=== PATIENT | female | born 1945 | race Caucasian/White ===

== ENCOUNTER 2021-12-13 11:13 | Inpatient (IN) | payer BC ==
[~2021-12-13] VITALS: Ht 167.6 cm; Wt 54.4 kg
[2021-12-13 11:13] VITALS: BP_SYST 141
--- NOTE | 2021-12-13 11:25 | NUR ---
RECEIVED PT FROM KUNAL SMALLS. PT WAS SENT HER BY HER PCP DUE TO LOW HGB LEVEL. PT IS AAOX4. PERRL, RESP E/U. ON R/A. DENIES N/V/D/C. SKIN PALE, WARM, INTACT. CAP REFILL <3 SECS. NO EDEMA. DENIES PAIN.
--- NOTE | 2021-12-13 11:32 | NUR ---
ER at bedside examining patient.
--- NOTE | 2021-12-13 11:40 | NUR ---
# 20 gauge angiocath placed to LAC. Use of asceptic technique. Opsite placed over site. Blood return noted. Blood for lab drawn from site. Flushed with 10 cc of normal saline. No evidence of infiltration noted. Patient tolerated well.
[2021-12-13 11:55] LABS: BASOPHILS # (AUTO) 0.2 K/uL (0.0-0.2); BASOPHILS % (AUTO) 1.9 % (0.0-2.0); EOSINOPHILS # (AUTO) 0.3 K/uL (0.0-0.4); EOSINOPHILS % (AUTO) 2.6 % (0.0-4.0); LYMPHOCYTES # (AUTO) 0.9 K/uL (1.0-5.5); LYMPHOCYTES % (AUTO) 8.5 % (20.5-51.5); MEAN CORPUSCULAR HEMOGLOBIN 23 pg (27-31); MEAN CORPUSCULAR HGB CONC 33 % (32-36); MEAN CORPUSCULAR VOLUME 70 fL (79.0-98.0); MONOCYTES # (AUTO) 0.6 K/uL (0.0-1.0); NEUTROPHILS # (AUTO) 8.2 K/uL (1.8-7.7); PLATELET COUNT (AUTO) 437 K/uL (130-430); RED BLOOD CELL COUNT(AUTO) 2.13 MIL/uL (4.2-6.2); RED CELL DISTRIBUTION WIDTH 23.5 % (9.0-15.0); WHITE BLOOD COUNT (AUTO) 10.2 K/uL (4.8-10.8)
[2021-12-13 11:58] LABS: HEMATOCRIT 14.9 % (36-48); HEMOGLOBIN 4.9 g/dL (12.0-16.0)
--- NOTE | 2021-12-13 12:02 | NUR ---
BLOOD CONSENT AND COVID SAMPLE OBTAINED.
[2021-12-13 12:07] LABS: ANION GAP 6 (5-15); CALCIUM 8.1 mg/dL (8.4-11.0); CHLORIDE 102 mmol/L (98-107); CREATININE 0.82 mg/dL (0.55-1.30); GLUCOSE 105 mg/dL (70-99); UREA NITROGEN, BLOOD 17 mg/dL (8-21)
[2021-12-13 12:11] LABS: ALANINE AMINOTRANSFERASE 13 U/L (12-78); ALBUMIN 2.6 g/dL (3.4-4.8); AMYLASE 54 U/L (0-100); ASPARTATE AMINOTRANSFERASE 15 U/L (10-37); LIPASE 62 U/L (73-393); TOTAL BILIRUBIN 0.7 mg/dL (0.0-1.0)
[2021-12-13 12:13] LABS: PROTHROMBIN TIME 10.4 SECS (9.5-12.5)
--- NOTE | 2021-12-13 13:15 | NUR ---
FIRST UNIT PRBC OF 3 UNITS INITIATED AT THIS TIME. PT EDUCATED ON S/S OF TRANSFUISION REACTION AND VERBALIZED UNDERSTANDING.
--- NOTE | 2021-12-13 14:30 | NUR ---
Admit bed requested Patient will be admitted to care of . Admitted to TELEMETRY unit. Diagnosis SYMPTOMATIC ANEMIA Inpatient (Yes or No) YES Observation (Yes or No) NO Orientation concerns or request close to nursing station (Yes or No) NO Covid Status NEGATIVE On vent or bipap NO Isolation requirements NO Needs a sitter YES From Home (Yes or if No enter name of facility) YES Requires Dialysis (Yes or No) NO Med Rec Completed (Yes of No)NOT AVAILABLE.
--- NOTE | 2021-12-13 15:55 | NUR ---
BLOOD TRANSFUSION ONE UNIT PRBC COMPLETED. PT TRANSFERRED TO TELEMETRY R00M 111B. PT ENDORSED TO KUNAL HEDRICK. FLORIDALMA MADE AWARE PT HAS 2 MORE UNITS PRBCS DUE AND BLOOD BANK TECH STATED BOTH UNITS ARE READY. Patient will be admitted to care of KUNAL HEDRICK. Admitted to TELEMETRY unit. Will go to room 111B. Belongings list completed. Complete and up to date summary report printed. SBAR report to be given at bedside with opportunity for questions.
--- NOTE | 2021-12-13 17:17 | NUR ---
ADMITTED PATIENT TO ROOM 111b,A/OX4,VSS,AMBULATORY TO BATHROOM WITH STAND BY ASSIST,STARTED SECOND UNIT PRBC ,CONTINUE TO MONITOR PT PER TRANSFUSION PROTOCOL
[2021-12-13] MEDS ORDERED: PANTOPRAZOLE SODIUM 40 MG/VIAL (PROTONIX) IVP ONE (17:30)
[2021-12-13 17:41] VITALS: BP_SYST 127
[2021-12-13] MEDS ORDERED: SIMV-343 PO (17:58)
[2021-12-13] MEDS ORDERED: LEVO100C4 (18:02)
[2021-12-13] MEDS ORDERED: IRON28TA4 PO (18:02)
[2021-12-13] MEDS ORDERED: OMEG-158 PO (18:24)
--- NOTE | 2021-12-13 18:30 | NUR ---
SECOND UNIT BLOOD ONGOING WELL.NO BLOOD TRANSFUSION REACTIONS OBSERVED PT EATING WELL FOR DINNER,HOURLY ROUNDS MADE,SAFETY MAINTAINED.
[2021-12-13 19:35] VITALS: BP_SYST 130
--- NOTE | 2021-12-13 19:35 | NUR ---
INITIAL NOTE AT INITIAL ASSESSMENT, PATIENT IS RESTING IN BED, STABLE, NO SIGNS OF RESPIRATORY DISTRESS. IS AT BEDSIDE. PATIENT VERBALIZES NO PAIN. PLAN OF CARE FOR THE EVENING IS COMMUNICATED WITH THE PATIENT, AND HER . PATIENT IS TAUGHT CALL LIGHT BUTTON, AND SHE DEMONSTRATES USAGE TEACH BACK CORRECTLY. CALL LIGHT PLACED WITHIN REACH. BED IS LOCKED, ALARMED, AND AT THE LOWEST LEVEL. FALL, AND SAFETY PRECAUTIONS WILL BE TAKEN THROUGH THE SHIFT.
--- NOTE | 2021-12-13 19:47 | NUR ---
2nd unit blood transfusion complete KUNAL Paul and myself (KUNAL Ybarra) at bedside with patient. Blood transfusion complete. VSS, afebrile and denies any pain or symptoms of reaction. Patient ambulated to restroom, returned to bed. No distress, family is visiting at bedside, call light w/in reach.
[2021-12-13] MEDS: D5/0.45 NS 1,000 ML IV SCH (20:20)
--- NOTE | 2021-12-13 21:55 | NUR ---
BT INITIATION/ UNIT #3 OF 3 Consent signed per PATIENT agreeing to administration of blood. Blood has been type and crossmatched. Blood sent from blood bank. Information on unit of blood checked against patient wristband at bedside by two nurses. All information matches. Patient or responsible green party informed of potential complications associated with blood transfusion. Informed of possible transfusion reaction symptoms. Aware of need to notify nurse at once of itching, shortness of breath, flushing, feeling of impending doom, or other symptoms not previously present. Vital signs taken within 5 minutes prior to initiation of transfusion. RN will remain with patient for first 15 minutes of transfusion at which time vital signs will be re-assessed.
--- NOTE | 2021-12-13 23:10 | NUR ---
PATIENT AMBULATED TO RESTROOM PATIENT WAS ABLE TO AMBULATE TO THE RESTROOM FOR A VOID AT THIS TIME WITH ONLY STAND-BY ASSIST. SHE TOLERATED TRIP WELL.
[2021-12-14] VITALS: BP_SYST 130
--- NOTE | 2021-12-14 00:25 | NUR ---
BLOOD TRANSFUSION 3 OF 3 COMPLETED PATIENT TOLERATED BLOOD TRANSFUSION WELL, NO ADVERSE REACTIONS NOTED. SHE VERBALIZED SHE FEELS "BETTER" AND "MORE ENERGIZED". SHE IS CONNECTED BACK ONTO HER IVF PER ORDERS.
[2021-12-14 03:49] LABS: HEMATOCRIT 24.5 % (36-48); HEMOGLOBIN 8.3 g/dL (12.0-16.0)
[2021-12-14 03:55] LABS: TOTAL IRON BIND. CAPACITY 302 ug/dL (250-450)
--- NOTE | 2021-12-14 06:59 | NUR ---
CLOSING NOTE PATIENT SHE FEELS MUCH BETTER AND MORE ENERGETIC THIS MORNING, SHE HAS BEEN AMBULATING TO THE RESTROOM WITHOUT ASSISTANCE NEEDED DURING THE NIGHT. SHE VERBALIZES NO PAIN. AT THIS TIME, SHE IS RESTING IN BED, STABLE, NO SIGNS OF RESPIRATORY DISTRESS. CALL LIGHT PLACED WITHIN REACH. BED IS LOCKED, ALARMED, AND AT THE LOWEST LEVEL. WILL CONTINUE TO MONITOR UNTIL REPORT IS GIVEN AT BEDSIDE TO AM NURSE.
[2021-12-14 08:00] VITALS: BP_SYST 135
[2021-12-14] MEDS: PANTOPRAZOLE SODIUM 40 MG/VIAL (PROTONIX) IVP SCH (09:08)
[2021-12-14] MEDS ORDERED: POLYETHYLENE GLYCOL 3350, 17 GM/ POWD.PACK PO SCH (10:00)
[2021-12-14] MEDS ORDERED: POLYETHYLENE GLYCOL 3350, 17 GM/ POWD.PACK PO ONE ×5 (10:30→22:00)
--- NOTE | 2021-12-14 13:53 | NUR ---
CONSULTATION PAGED/CALLED Reason for Consultation: [] CHRONIC ANEMIA Person Who was Notified: [] AGATA Consulting Physician: [] DR DEE Chief Medical Officer Specialty: [] ONCO/DOUGLAS Ordering Physician: [] DR MATTHEWS
[2021-12-14] MEDS ORDERED: BISACODYL 5 MG TABLET.DR (DULCOLAX) PO ONE (17:00)
[2021-12-14 19:35] VITALS: BP_SYST 118
--- NOTE | 2021-12-14 19:35 | NUR ---
INITIAL NOTE AT INITIAL ASSESSMENT, PATIENT IS RESTING IN BED, STABLE, NO SIGNS OF RESPIRATORY DISTRESS. PATIENT VERBALIZES NO PAIN. PLAN OF CARE FOR THE EVENING IS COMMUNICATED WITH THE PATIENT. PATIENT IS TAUGHT CALL LIGHT BUTTON, AND SHE DEMONSTRATES USAGE TEACH BACK CORRECTLY. PATIENT UNDERSTANDS THE PLAN FOR COLONOSCOPY AND EGD IN AM; SHE ALSO UNDERSTANDS THE PREPARATION SHE WILL HAVE TO GO THROUGH TONIGHT TO PREPARE FOR AM PROCEDURE. CALL LIGHT PLACED WITHIN REACH. BED IS LOCKED, ALARMED, AND AT THE LOWEST LEVEL. FALL, AND SAFETY PRECAUTIONS WILL BE TAKEN THROUGH THE SHIFT. Addendum: 12/15/21 at 0254 by Osorio Coronel RN RN PATIENT VERBALIZES SHE KNOWS SHE IS NPO AT THIS TIME PER MD ORDERS FOR AM PROCEDURE.
[2021-12-14] MEDS: D5/0.45 NS 1,000 ML IV SCH (21:12)
--- NOTE | 2021-12-14 23:00 | NUR ---
PATIENT FINISHES 2 OF 2 MIRALAX BOTTLES PATIENT HAS JUST FINISHED HER SECOND LITER OF MIRALAX. PATIENT TOLERATED WELL. CURRENTLY HER BOWEL MOVEMENTS AT THIS TIME ARE YELLOW WITH SOME SEDIMENTS. SHE IS STILL AMBULATING SAFELY WITHOUT ASSISTANCE NEEDED.
[2021-12-15 00:52] VITALS: BP_SYST 141
--- NOTE | 2021-12-15 04:20 | NUR ---
TAP WATER ENEMA TAP WATER ENEMA COMPLETED AT THIS TIME, PATIENT'S OUTPUT IS CLEARED, NO SEDIMENTS NOTED. PATIENT TOLERATED WELL.
--- NOTE | 2021-12-15 06:58 | NUR ---
CLOSING NOTE STOOLS ARE CLEARED, TAP WATER ENEMA ALREADY COMPLETED. PATIENT HAS BEEN NPO. PATIENT VERBALIZED NO MORE STOMACH PAINS OR CRAMPING THIS MORNING, SHE HAS BEEN AMBULATING TO THE RESTROOM WITHOUT ASSISTANCE NEEDED DURING THE NIGHT. SHE VERBALIZES NO PAIN. AT THIS TIME, SHE IS RESTING IN BED, STABLE, NO SIGNS OF RESPIRATORY DISTRESS. CALL LIGHT PLACED WITHIN REACH. BED IS LOCKED, ALARMED, AND AT THE LOWEST LEVEL. WILL CONTINUE TO MONITOR UNTIL REPORT IS GIVEN AT BEDSIDE TO AM NURSE.
[2021-12-15 08:00] VITALS: BP_SYST 143
--- NOTE | 2021-12-15 08:00 | NUR ---
AM ASSESSMENT PT UP IN BED, CHECKING HER PHONE, AWARE OF HER PROCEDURE FOR TODAY, NPO, EGD AND COLONOSCOPY.
[2021-12-15 08:12] LABS: TOTAL IRON BIND. CAPACITY 294 ug/dL (250-450)
[2021-12-15] MEDS: PANTOPRAZOLE SODIUM 40 MG/VIAL (PROTONIX) IVP SCH (09:39)
[2021-12-15] MEDS ORDERED: SIMETHICONE 40 MG/0.6 ML ML ONE (10:34)
[2021-12-15 11:40] VITALS: BP_SYST 133
[2021-12-15] MEDS ORDERED: PRO40 PO (11:54)
--- NOTE | 2021-12-15 12:05 | NUR ---
TO GI LAB TRANSPORTED VIA WHEELCHAIR TO THE DEPT.
[2021-12-15] MEDS: MIDAZOLAM HCL 5 MG/5 ML VIAL ONE ×4 (12:33→12:56)
[2021-12-15] MEDS: MEPERIDINE 100 MG INJ. 100 MG/ML VIAL ONE ×2 (12:33→12:49)
--- NOTE | 2021-12-15 13:25 | NUR ---
TO [facility] BROUGHT PT BACK TO ROOM 111-B.
--- NOTE | 2021-12-15 13:39 | NUR ---
CONSULTATION PAGED REASON FOR CONSULTATION:CA COLON WAS CONSULT CALLED?Y PERSON WHO WAS NOTIFIED:MADY CONSULTING PHYSICIAN:[employer] AIR CONDITIONING SERVICE TECHNICIAN SPECIALTY:ONCOLOGY/HEMATOLOGY AIR CONDITIONING SERVICE TECHNICIAN PHONE NUMBER:[phone] REQUESTING PHYSICIAN:PIERO DUNN
--- NOTE | 2021-12-15 13:51 | NUR ---
CONSULTATION PAGED REASON FOR CONSULTATION:CA COLON WAS CONSULT CALLED?Y PERSON WHO WAS NOTIFIED:CIPRIANO CONSULTING PHYSICIAN:FABIOLA GIMENEZ TABLEAU ARCHITECT SPECIALTY:SURGEON TABLEAU ARCHITECT PHONE NUMBER:[phone] REQUESTING PHYSICIAN:PIERO DUNN
[2021-12-15 15:15] VITALS: BP_SYST 111
--- NOTE | 2021-12-15 16:20 | NUR ---
CONSENT APPROACHED PT WHILE SHE WAS SPEAKING TO HER . CONSENT FOR USE OF IV CONTRAST GIVEN.
[2021-12-15] MEDS ORDERED: iohexoL 350 mgI/mL, 100 ML INFUS..BTL IV ONE (17:15)
[2021-12-15 19:45] VITALS: BP_SYST 125
[2021-12-16 01:21] VITALS: BP_SYST 108
[2021-12-16] MEDS: D5/0.45 NS 1,000 ML IV SCH ×2 (06:20→18:15)
--- NOTE | 2021-12-16 06:45 | NUR ---
CLOSING NOTE NO CHANGES. PATIENT STATED SHE HAD NO PAINS OR DISCOMFORT, SHE HAS BEEN AMBULATING TO THE RESTROOM WITHOUT ASSISTANCE NEEDED DURING THE NIGHT. AT THIS TIME, SHE IS RESTING IN BED, STABLE, NO SIGNS OF RESPIRATORY DISTRESS. CALL LIGHT PLACED WITHIN REACH. BED IS LOCKED, ALARMED, AND AT THE LOWEST LEVEL. WILL CONTINUE TO MONITOR UNTIL REPORT IS GIVEN AT BEDSIDE TO AM NURSE.
[2021-12-16 07:09] LABS: ANION GAP 7 (5-15); CALCIUM 8.3 mg/dL (8.4-11.0); CHLORIDE 105 mmol/L (98-107); GLUCOSE 97 mg/dL (70-99); UREA NITROGEN, BLOOD 8 mg/dL (8-21)
[2021-12-16 08:00] VITALS: BP_SYST 141
--- NOTE | 2021-12-16 08:05 | NUR ---
Initial note Received patient awake, alert/oriented x4, verbalizes needs and concern. Respiration even and unlabored, lungs clear. Vital signs normal, SR on campus monitor. No c/o SOB or pain, no signs distress. IV fluids infusing to right hand, no sign of infiltration. All safety measure are secured, bed in low position, call light w/in reached, continue to monitor.
[2021-12-16 08:18] LABS: BASOPHILS # (AUTO) 0.1 K/uL (0.0-0.2); BASOPHILS % (AUTO) 0.8 % (0.0-2.0); EOSINOPHILS # (AUTO) 0.4 K/uL (0.0-0.4); EOSINOPHILS % (AUTO) 3.8 % (0.0-4.0); HEMOGLOBIN 8.1 g/dL (12.0-16.0); LYMPHOCYTES # (AUTO) 0.8 K/uL (1.0-5.5); LYMPHOCYTES % (AUTO) 7.5 % (20.5-51.5); MEAN CORPUSCULAR HEMOGLOBIN 27 pg (27-31); MEAN CORPUSCULAR HGB CONC 34 % (32-36); MEAN CORPUSCULAR VOLUME 79 fL (79.0-98.0); MONOCYTES # (AUTO) 0.7 K/uL (0.0-1.0); MONOCYTES % (AUTO) 6.6 % (1.7-9.3); NEUTROPHILS # (AUTO) 8.3 K/uL (1.8-7.7); NEUTROPHILS % (AUTO) 81.3 % (40.0-70.0); PLATELET COUNT (AUTO) 331 K/uL (130-430); RED BLOOD CELL COUNT(AUTO) 3.04 MIL/uL (4.2-6.2); RED CELL DISTRIBUTION WIDTH 25.9 % (9.0-15.0); WHITE BLOOD COUNT (AUTO) 10.2 K/uL (4.8-10.8)
[2021-12-16] MEDS: PANTOPRAZOLE SODIUM 40 MG/VIAL (PROTONIX) IVP SCH (08:26)
[2021-12-16] MEDS ORDERED: POTASSIUM CHLORIDE 40 MEQ in NS 250 ML IV ONE (09:15)
[2021-12-16] MEDS ORDERED: OMEGA-3/DHA/EPA/FISH OIL 1 GM CAPSULE PO ONE (09:45)
[2021-12-16] MEDS ORDERED: LEVOTHYROXINE SODIUM 0.1 MG TABLET PO ONE (09:45)
--- NOTE | 2021-12-16 09:51 | NUR ---
HIGH ALERT NOTE: Called Dr. Reilly harvest contractor for Dr. Grant back at [phone] identified within the medical roster to verify physician authenticity.
--- NOTE | 2021-12-16 10:00 | NUR ---
Rounding Patient stable , no c/o pain or distress, all safety secured, continue to monitor
[2021-12-16 12:00] VITALS: BP_SYST 135
--- NOTE | 2021-12-16 12:00 | NUR ---
SEEN BY DR BYRON MATTHEWS CAME TO SEE PATIENT.
--- NOTE | 2021-12-16 13:00 | NUR ---
DR HOFFMAN CAME TO SEE PATIENT DR. HOFFMAN CAME TO SEE PATIENT PLANNING TO DO SURGERY ON SATURDAY, PATIENT TO BE KEPT ON CLEAR LIQUID TILL BEFORE SURGERY
--- NOTE | 2021-12-16 16:00 | NUR ---
Rounding No c/o pain or distress in stable condition,all safety secured, family at bedside continue to monitor
[2021-12-16 16:56] VITALS: BP_SYST 140
--- NOTE | 2021-12-16 18:18 | NUR ---
Closing note Patient stable, no c/o pain, dizziness or SOB, vital signs w/in normal limit, no change in condition, will endorse to oncoming nurse
--- NOTE | 2021-12-16 18:43 | NUR ---
IV SITE IV SITE GETTING TENDER, EXPLAINED THE IMPORTANCE OF RE INSERTING A NEW ONE BUT STILL REFUSED.
--- NOTE | 2021-12-16 18:55 | NUR ---
CARDIAC CLEARANCE TO BE SEEN BY DR Miquel ANGELO FOR CARDIAC CLEARANCE.
[2021-12-16] MEDS: SIMVASTATIN 20 MG TABLET PO SCH (20:24)
[2021-12-16 20:57] VITALS: BP_SYST 134
--- NOTE | 2021-12-17 00:24 | NUR ---
CONSULTATION PAGED/CALLED Reason for Consultation: CARDIAC CLEARANCE Person Who was Notified: DR Delia ANGELO VIA TEXT Consulting Physician: DR Delia ANGELO Cupola Worker Specialty: Ordering Physician: BYRON
[2021-12-17] MEDS: D5/0.45 NS 1,000 ML IV SCH ×3 (01:19→21:14)
--- NOTE | 2021-12-17 05:34 | NUR ---
rn notes patient remains on room air, no sob noted, VSS all shift. clear liquid diet, and tolerating. D5 1/2 NS running at 100 mL. Biopsy of colon mass done, pending results. K was replaced. Saturday surgery is the plan.
[2021-12-17] MEDS: LEVOTHYROXINE SODIUM 0.1 MG TABLET PO SCH (06:24)
[2021-12-17 08:00] VITALS: BP_SYST 135
[2021-12-17] MEDS ORDERED: OMEGA-3/DHA/EPA/FISH OIL 1 GM CAPSULE PO SCH (09:00)
[2021-12-17] MEDS: PANTOPRAZOLE SODIUM 40 MG/VIAL (PROTONIX) IVP SCH (10:45)
[2021-12-17 11:14] LABS: ANION GAP 7 (5-15); CALCIUM 8.2 mg/dL (8.4-11.0); CHLORIDE 105 mmol/L (98-107); GLUCOSE 113 mg/dL (70-99); UREA NITROGEN, BLOOD 5 mg/dL (8-21)
[2021-12-17] MEDS ORDERED: POTASSIUM CHLORIDE 40 MEQ, LIDOCAINE JECT 2% PF 100 MG 50 MG in NS 250 ML IV ONE (11:45)
[2021-12-17 12:00] VITALS: BP_SYST 136
--- NOTE | 2021-12-17 12:54 | NUR ---
Eliane from radiology called this typewriter assembly and parts inspector she states that she has spoken ith the staff of nuclear medicine and th ordered study will be completed at 10am tomorrow 12/18/21
[2021-12-17] MEDS: NEOMYCIN SULFATE 500 MG TABLET PO SCH ×2 (13:19→18:01)
[2021-12-17 16:00] VITALS: BP_SYST 134
[2021-12-17] MEDS ORDERED: POTASSIUM CHLORIDE 20 MEQ TAB.PRT.SR PO ONE (16:00)
[2021-12-17 17:14] LABS: BILIRUBIN,URINE NEGATIVE (NEGATIVE); CLARITY/URINE CLEAR (CLEAR); GLUCOSE,URINE NEGATIVE (NEGATIVE); KETONES,URINE NEGATIVE (NEGATIVE); LEUKOCYTE ESTERASE ,URINE NEGATIVE (NEGATIVE); NITRITE, URINE NEGATIVE (NEGATIVE); PH,URINE 5.5 (5.0-8.0); PROTEIN URINE NEGATIVE (NEGATIVE); UROBILINOGEN,URINE 0.2 (0.2-1.0)
[2021-12-17 17:18] LABS: BLOOD, URINE TRACE (NEGATIVE)
[2021-12-17 17:22] LABS: COLOR,URINE YELLOW (YELLOW)
[2021-12-17 17:23] LABS: BACTERIA,URINE RARE /HPF (None Seen); MUCUS,URINE None Seen /LPF (None Seen); RBC,URINE 0-3 /HPF (0-3); WBC,URINE 0-3 /HPF (0-3)
--- NOTE | 2021-12-17 18:30 | NUR ---
Mrs. Siddiqui has been assessed as indicated. She has been noted to be both pleasant and cooperative. She is aware of the plan for surgery tomorrow. She has signed consent. Her is aware and is at the bedside at this time. She has been given supplemental potassium today. This was well tolerated. She has been bathed and linens changed. She states that she wants to ambulate. She has been encouraged to do so. She is resting quietly and sitting at the side of her bed at this time
--- NOTE | 2021-12-17 19:15 | NUR ---
Hand off has alan given to Truong
[2021-12-17 20:00] VITALS: BP_SYST 142
[2021-12-17] MEDS: BISACODYL 5 MG TABLET.DR (DULCOLAX) PO SCH (21:13)
[2021-12-17] MEDS: POTASSIUM CHLORIDE 20 MEQ TAB.PRT.SR PO SCH (21:14)
[2021-12-17] MEDS: SIMVASTATIN 20 MG TABLET PO SCH (21:14)
[2021-12-18] VITALS: BP_SYST 134
[2021-12-18] MEDS: NEOMYCIN SULFATE 500 MG TABLET PO SCH ×4 (01:11→17:32)
[2021-12-18] MEDS: LEVOTHYROXINE SODIUM 0.1 MG TABLET PO SCH (06:42)
[2021-12-18 06:46] LABS: BASOPHILS # (AUTO) 0.1 K/uL (0.0-0.2); BASOPHILS % (AUTO) 1.1 % (0.0-2.0); EOSINOPHILS # (AUTO) 0.4 K/uL (0.0-0.4); EOSINOPHILS % (AUTO) 5.2 % (0.0-4.0); HEMATOCRIT 25.2 % (36-48); HEMOGLOBIN 8.5 g/dL (12.0-16.0); LYMPHOCYTES # (AUTO) 0.6 K/uL (1.0-5.5); LYMPHOCYTES % (AUTO) 8.2 % (20.5-51.5); MEAN CORPUSCULAR HEMOGLOBIN 27 pg (27-31); MEAN CORPUSCULAR HGB CONC 34 % (32-36); MEAN CORPUSCULAR VOLUME 80 fL (79.0-98.0); MONOCYTES # (AUTO) 0.5 K/uL (0.0-1.0); MONOCYTES % (AUTO) 6.7 % (1.7-9.3); NEUTROPHILS # (AUTO) 6.1 K/uL (1.8-7.7); NEUTROPHILS % (AUTO) 78.8 % (40.0-70.0); PLATELET COUNT (AUTO) 311 K/uL (130-430); RED BLOOD CELL COUNT(AUTO) 3.16 MIL/uL (4.2-6.2); RED CELL DISTRIBUTION WIDTH 25.8 % (9.0-15.0); WHITE BLOOD COUNT (AUTO) 7.7 K/uL (4.8-10.8)
[2021-12-18] MEDS: D5/0.45 NS 1,000 ML IV SCH ×2 (07:30→17:34)
--- NOTE | 2021-12-18 07:30 | NUR ---
OPENING NOTE PT IN BED, RESPIRATIONS EVEN AND NON-LABORED. DENIES ANY PAIN OR DISCOMFORT. STRESS TEST AND SURGERY SCHEDULED TODAY. BED IS LOCKED AND AT LOWEST POSITION. WILL CONTINUE TO MONITOR
[2021-12-18 07:33] LABS: ALANINE AMINOTRANSFERASE 8 U/L (12-78); ALBUMIN 2.4 g/dL (3.4-4.8); ANION GAP 1 (5-15); ASPARTATE AMINOTRANSFERASE 12 U/L (10-37); CALCIUM 8.3 mg/dL (8.4-11.0); CHLORIDE 105 mmol/L (98-107); CREATININE 0.72 mg/dL (0.55-1.30); GLUCOSE 94 mg/dL (70-99); TOTAL BILIRUBIN 0.6 mg/dL (0.0-1.0); UREA NITROGEN, BLOOD 3 mg/dL (8-21)
[2021-12-18 08:00] VITALS: BP_SYST 150
[2021-12-18] MEDS: POTASSIUM CHLORIDE 20 MEQ TAB.PRT.SR PO SCH ×2 (08:03→20:06)
[2021-12-18] MEDS: PANTOPRAZOLE SODIUM 40 MG/VIAL (PROTONIX) IVP SCH (08:03)
[2021-12-18 08:35] LABS: PROTHROMBIN TIME 10.4 SECS (9.5-12.5)
--- NOTE | 2021-12-18 09:00 | NUR ---
COLLECTED UA Addendum: 12/18/21 at 1811 by Alicia Funk RN DISREGARD THIS
[2021-12-18] MEDS ORDERED: REGADENOSON 0.4 MG/5 ML SYRINGE IVP ONE (10:00)
--- NOTE | 2021-12-18 10:02 | NUR ---
PICKED UP FOR [facility]
--- NOTE | 2021-12-18 11:00 | NUR ---
CAME BACK FROM [facility]
[2021-12-18 11:48] VITALS: BP_SYST 141
--- NOTE | 2021-12-18 12:10 | NUR ---
PRBCX 2 UNITS ON HOLD FOR SURGERY SPOKE WITH DR. HOFFMAN, 2 UNITS OF PRBC ON HOLD FOR SURGERY. TYPED AND SCREENED.
[2021-12-18] MEDS ORDERED: METOPROLOL SUCCINATE 25 MG TAB.SR.24H (TOPROL XL) PO ONE (12:15)
[2021-12-18] MEDS: SOD FERRIC GLUC COMPLEX/SUC 125 MG in NS 100 ML IV SCH (12:16)
[2021-12-18 12:55] VITALS: BP_SYST 141
--- NOTE | 2021-12-18 14:00 | NUR ---
AMBULATION PT AMBULATES TO GO BATHROOM INDEPENDENTLY. STEADY GAIT NOTED.
--- NOTE | 2021-12-18 15:00 | NUR ---
NOTES PT DENIES ANY PAIN OR DISCOMFORT. WAITING FOR THE SURGERY TEAM TO PICK HER UP.
--- NOTE | 2021-12-18 16:00 | NUR ---
CANCEL SURGERY TODAY,MOVE TO 12/20/21(SAT); SURGERY TEAM CAME TO PT ROOM, EXPLAINING THAT DUE TO THE LACK OF STAFFING, SURGERY CANNOT BE DONE TODAY. RESCHEDULED TO 12/20/21 (SAT) AFTERNOON. TALKED TO DR. MATTHEWS, PT WILL HAVE REGULAR DIET TODAY, THEN CLEAR LIQUID, THEN NPO. DR. HENDRICKSON MADE AWARE OF LOW ALBUMIN LEVEL. PT VERBALIZES UNDERSTANDING.
--- NOTE | 2021-12-18 16:30 | NUR ---
SURGERY RESCHEDULED TOMORROW (12/19/21);
[2021-12-18 17:40] VITALS: BP_SYST 138
--- NOTE | 2021-12-18 18:00 | NUR ---
NOTES PT'S EATING CLEAR LIQUID DINNER. DENIES ANY DISCOMFORT OR PAIN. IV RUNNING ORDERED. IV SITE REMAIN INTACT AND PATENT. FAMILY MEMBER AT BEDSIDE. BED IS LOCKED AND AT LOW POSITION. ENCOURAGED TO USE CALL LIGHT FOR ASSISTANCE. WILL CONTINUE TO MONITOR.
--- NOTE | 2021-12-18 18:50 | NUR ---
CLOSING NOTE PT IN BED, RESTING WITH EVEN AND NON-LABORED BREATHING. IV RUNNING ORDERED. IV SITE REMAIN PATENT AND INTACT NO S/S OF INFILTRATION OR INFECTION. BED IS LOCKED AT AT LOW POSITION. ENCOURAGED TO USE CALL LIGHT FOR ASSISTANCE. FAMILY MEMBER AT BEDSIDE. DENIES ANY PAIN OR DISCOMFORT. WILL ENDORSE CARE TO YARD JOCKEY.
[2021-12-18 20:00] VITALS: BP_SYST 146
[2021-12-18] MEDS: BISACODYL 5 MG TABLET.DR (DULCOLAX) PO SCH (20:06)
[2021-12-18] MEDS: SIMVASTATIN 20 MG TABLET PO SCH (20:06)
--- NOTE | 2021-12-18 23:42 | NUR ---
Shift Summary: patient is AAOX4. vitals are stable upon start of shift. introduced myself to patient and updated patient on plan of care for the evening. patient state she understands NPO orders at midnight and has no questions or concern at the moment. call light within reach, bed set to low, locked, and alarm on. will continue to monitor patient. Addendum: 12/19/21 at 0625 by Gissel Coronel RN RN hourly rounding done. patient resting. all concerns during shift addressed. patient currently has no questions or concerns at this time. will endorse care to oncoming nurse. call light within reach, bed set to low, locked, and alarm on.
[2021-12-19] VITALS: BP_SYST 123
[2021-12-19] MEDS: NEOMYCIN SULFATE 500 MG TABLET PO SCH ×3 (00:39→23:52)
[2021-12-19] MEDS: D5/0.45 NS 1,000 ML IV SCH ×2 (02:35→23:53)
[2021-12-19] MEDS: LEVOTHYROXINE SODIUM 0.1 MG TABLET PO SCH (06:14)
[2021-12-19 07:32] LABS: ANION GAP 8 (5-15); CALCIUM 8.3 mg/dL (8.4-11.0); CHLORIDE 105 mmol/L (98-107); CREATININE 0.73 mg/dL (0.55-1.30); GLUCOSE 103 mg/dL (70-99); UREA NITROGEN, BLOOD 3 mg/dL (8-21)
[2021-12-19] MEDS: METOPROLOL SUCCINATE 25 MG TAB.SR.24H (TOPROL XL) PO SCH (10:45)
[2021-12-19 11:28] VITALS: BP_SYST 136
[2021-12-19] MEDS: SOD FERRIC GLUC COMPLEX/SUC 125 MG in NS 100 ML IV SCH (12:16)
[2021-12-19] MEDS ORDERED: LR 1,000 ML IV.SOLN IV ONE (13:33)
[2021-12-19] MEDS ORDERED: CEFAZOLIN 1 GM IVPB PREMIX 50 ML IV ONE (13:33)
[2021-12-19] MEDS ORDERED: ROCURONIUM BROMIDE 10 MG/ML (ZEMURON) IV ONE (13:33)
[2021-12-19] MEDS ORDERED: PROPOFOL 200MG/ 20ML VIAL (DIPRIVAN) IV ONE (13:33)
[2021-12-19] MEDS ORDERED: BUPIVACAINE /PF 0.25% 30 ML VIAL INJ ONE (13:33)
[2021-12-19] MEDS ORDERED: DEXAMETHASONE SOD PHOSPHATE 4 MG/ML VIAL IVP ONE (13:33)
[2021-12-19] MEDS ORDERED: INDOCYANINE GREEN 25 MG VIAL IV ONE (13:33)
[2021-12-19] MEDS ORDERED: SUCCINYLCHOLINE CHLORIDE 20 MG/ML(QUELICIN) IVP ONE (13:33)
[2021-12-19] MEDS ORDERED: SEVOFLURANE 15 MIN GAS INH ONE (13:33)
[2021-12-19] MEDS ORDERED: METOCLOPRAMIDE HCL 10 MG/2 ML VIAL IVP PRN (15:45)
[2021-12-19] MEDS ORDERED: ONDANSETRON HCL 4 MG/2 ML VIAL IVP PRN (15:45)
[2021-12-19] MEDS ORDERED: fentaNYL CITRATE/PF 100 MCG/2 ML AMP IVP PRN (15:45)
[2021-12-19] MEDS ORDERED: BUPIVACAINE LIPOSOME/PF 266 MG/20 ML VIAL INFIL ONE (16:54)
--- NOTE | 2021-12-19 17:30 | NUR ---
Dietitian Recommendations * When medically appropriate, advance to cardiac diet * Recommend VIT C + Fe supplement for increased Fe absorption Please refer to nutrition assessment for details, thanks! CC, MPH, RDN
[2021-12-19] MEDS ORDERED: fentaNYL CITRATE/PF 100 MCG/2 ML AMP ONE (17:53)
[2021-12-19] MEDS: fentaNYL CITRATE/PF 100 MCG/2 ML AMP IVP PRN ×2 (17:54→18:25)
[2021-12-19] MEDS ORDERED: GLYCOPYRROLATE 0.2 MG/ML VIAL ONE (18:36)
--- NOTE | 2021-12-19 19:30 | NUR ---
Opening note Received report from day shift. Pt is currently in the PACU. is in pt room waiting
[2021-12-19 20:00] VITALS: BP_SYST 134
--- NOTE | 2021-12-19 20:01 | NUR ---
BACK FROM PACU pt is back from PACU s/p laparoscopic hemicolectomy. VSS. at bedside. Pt states she feels comfortable, no pain. Fall and safety checks in place
[2021-12-19] MEDS: POTASSIUM CHLORIDE 20 MEQ TAB.PRT.SR PO SCH (20:10)
[2021-12-19] MEDS: SIMVASTATIN 20 MG TABLET PO SCH (20:28)
[2021-12-19] MEDS: BISACODYL 5 MG TABLET.DR (DULCOLAX) PO SCH (20:28)
[2021-12-19] MEDS: HYDROcodone/ACETAMIN 5-325 MG TAB (NORCO/ VICODIN) PO PRN (21:20)
[2021-12-19] MEDS: cefOXitin SODIUM 1 GM in D5W 50 ML IV SCH (23:52)
[2021-12-20] VITALS: BP_SYST 123
[2021-12-20] MEDS: NEOMYCIN SULFATE 500 MG TABLET PO SCH ×3 (00:08→11:57)
--- NOTE | 2021-12-20 00:15 | NUR ---
ROUNDS pt is lying in bed, eyes closed. No s/s of acute distress. VSS. Fall and safety checks in place
[2021-12-20] MEDS: HYDROcodone/ACETAMIN 5-325 MG TAB (NORCO/ VICODIN) PO PRN ×2 (02:45→06:46)
[2021-12-20] MEDS: LEVOTHYROXINE SODIUM 0.1 MG TABLET PO SCH (06:11)
[2021-12-20] MEDS: cefOXitin SODIUM 1 GM in D5W 50 ML IV SCH ×2 (06:11→12:52)
--- NOTE | 2021-12-20 06:20 | NUR ---
STUART CATHETER REMOVAL per Dr Melton's orders to remove on morning of the first post op day. Pt tolerated well
--- NOTE | 2021-12-20 06:55 | NUR ---
CLOSING NOTE Pt is awake lying in bed. No s/s of respiratory distress. Breathing even and unlabored on RA. IV site intact and patent with fluids running at ordered rate. All needs met throughout shift. Fall and safety precautions in place with bed in lowest position, bed alarm on and call light within reach.
[2021-12-20 07:08] LABS: BASOPHILS % (AUTO) 0.2 % (0.0-2.0); EOSINOPHILS # (AUTO) 0.1 K/uL (0.0-0.4); EOSINOPHILS % (AUTO) 0.8 % (0.0-4.0); HEMATOCRIT 24.6 % (36-48); HEMOGLOBIN 8.3 g/dL (12.0-16.0); LYMPHOCYTES # (AUTO) 0.6 K/uL (1.0-5.5); LYMPHOCYTES % (AUTO) 6.6 % (20.5-51.5); MEAN CORPUSCULAR HEMOGLOBIN 27 pg (27-31); MEAN CORPUSCULAR HGB CONC 34 % (32-36); MEAN CORPUSCULAR VOLUME 80 fL (79.0-98.0); MONOCYTES # (AUTO) 0.8 K/uL (0.0-1.0); MONOCYTES % (AUTO) 8.5 % (1.7-9.3); NEUTROPHILS # (AUTO) 8.1 K/uL (1.8-7.7); NEUTROPHILS % (AUTO) 83.9 % (40.0-70.0); PLATELET COUNT (AUTO) 315 K/uL (130-430); RED CELL DISTRIBUTION WIDTH 25.9 % (9.0-15.0); WHITE BLOOD COUNT (AUTO) 9.7 K/uL (4.8-10.8)
[2021-12-20 07:24] LABS: ALANINE AMINOTRANSFERASE 7 U/L (12-78); ANION GAP 5 (5-15); ASPARTATE AMINOTRANSFERASE 13 U/L (10-37); CALCIUM 8.7 mg/dL (8.4-11.0); CHLORIDE 100 mmol/L (98-107); GLUCOSE 123 mg/dL (70-99); TOTAL BILIRUBIN 0.5 mg/dL (0.0-1.0); UREA NITROGEN, BLOOD 5 mg/dL (8-21)
[2021-12-20 08:00] VITALS: BP_SYST 129
--- NOTE | 2021-12-20 08:00 | NUR ---
OPENING NOTE Patient in bed resting, no sign of distress or pain. IV is patent and running prescribed fluids. Patient states that her pain is 4/10 and that the pain medication she received has been helping. Abdominal dressings are clean, dry, and intact. Patient assisted to the restroom, patient able to void after having the brown catheter removed and had steady gait. All needs met at this time and safety checks made.
[2021-12-20] MEDS: PANTOPRAZOLE SODIUM 40 MG/VIAL (PROTONIX) IVP SCH ×2 (09:00→10:31)
[2021-12-20] MEDS: POTASSIUM CHLORIDE 20 MEQ TAB.PRT.SR PO SCH (09:20)
[2021-12-20] MEDS: D5/0.45 NS 1,000 ML IV SCH (09:30)
[2021-12-20 11:13] VITALS: BP_SYST 124
[2021-12-20] MEDS: METOPROLOL SUCCINATE 25 MG TAB.SR.24H (TOPROL XL) PO SCH (12:00)
[2021-12-20] MEDS: SOD FERRIC GLUC COMPLEX/SUC 125 MG in NS 100 ML IV SCH (12:53)
[2021-12-20 15:34] VITALS: BP_SYST 104
--- NOTE | 2021-12-20 16:13 | NUR ---
Discharge appointments and vendors arranged by [facility] [employer] [facility] Peri Justin [phone] Dr. Morris [facility] will call with date and time Dr. Melton General surgeon [facility] will call with date and time Dr. Bingham Anime Designer [facility] will call with date and time [phone] [facility] safety eval , med rec Agency will call and schedule visit. Please call Patient Support Center [phone] for worsening symptoms or trouble getting your medicine. For care needs when provider office is closed, contact [place] [facility] [place] [phone] or Jayson [facility] [phone].
[2021-12-20 16:42] VITALS: BP_SYST 104
--- NOTE | 2021-12-20 17:20 | NUR ---
D/C Patient Patient given medication reconciliation form and D/C instructions. Exit Care provided. Patient verbalized understanding. MD discussed with patient the results and treatment provided. Ambulatory with steady gait for discharge to home via private auto with family. Patient in stable condition, ID band removed. IV catheter removed, intact and dressing applied, no active bleeding. Patient educated on pain management. All belongings sent with patient.
== END 2021-12-20 18:04 | disposition home or self-care (01) | DRG 329 ==
LOC: SED 11:13 → SMU 14:14 → STU 15:49 → SMU 12-16 11:48
PROVIDERS: ADMIT Internal Medicine; ATTEND Internal Medicine
PROC: 30233N1 Transfusion of Nonautologous Red Blood Cells into Peripheral Vein, Percutaneous Approach (ICD-10-PCS; 2021-12-13)
PROC: 0TPBX0Z Removal of Drainage Device from Bladder, External Approach (ICD-10-PCS; 2021-12-13)
PROC: 0DB Gastrointestinal System, Excision (ICD-10-PCS; 2021-12-15)
PROC: 0DB68ZX Excision of Stomach, Via Natural or Artificial Opening Endoscopic, Diagnostic (ICD-10-PCS; 2021-12-15)
PROC: 0DBK8ZZ Excision of Ascending Colon, Via Natural or Artificial Opening Endoscopic (ICD-10-PCS; principal; 2021-12-15 12:00)
PROC: 0DBK8ZX Excision of Ascending Colon, Via Natural or Artificial Opening Endoscopic, Diagnostic (ICD-10-PCS; 2021-12-15 12:00)
PROC: 0DTF4ZZ Resection of Right Large Intestine, Percutaneous Endoscopic Approach (ICD-10-PCS; 2021-12-19)
PROC: 8E0W4CZ Robotic Assisted Procedure of Trunk Region, Percutaneous Endoscopic Approach (ICD-10-PCS; 2021-12-19)
DX: C18.9 Malignant neoplasm of colon, unspecified (principal); E43 Unspecified severe protein-calorie malnutrition; Z68.1 Body mass index [BMI] 19.9 or less, adult; K57.30 Diverticulosis of large intestine without perforation or abscess without bleeding; K42.9 Umbilical hernia without obstruction or gangrene; K29.70 Gastritis, unspecified, without bleeding; D50.9 Iron deficiency anemia, unspecified; E78.5 Hyperlipidemia, unspecified; E03.9 Hypothyroidism, unspecified; K63.5 Polyp of colon; I51.7 Cardiomegaly; K64.8 Other hemorrhoids; Z20.822 Contact with and (suspected) exposure to COVID-19; Z90.49 Acquired absence of other specified parts of digestive tract; Z80.1 Family history of malignant neoplasm of trachea, bronchus and lung; Z90.710 Acquired absence of both cervix and uterus
CPT/HCPCS: 36415; 43239; 45380; 45384; 71045; 71260-TC; 76376; 80048; 80053; 81000; 82150; 82272; 82378; 82607; 82728; 82746; 83021; 83540; 83550; 83605; 83690; 83735; 85018; 85025; 85044; 85610-TC; 85660; 85730-TC; 86886; 86900; 86901; 86920; 87081; 88302; 88305; 88307; 88309; 88312; 88313; 93005; 93017; 93306; 94010; 99285; A9500; C1727; C9113; C9290; G0378; J0330; J0690; J0694; J1100; J2175; J2250; J2704; J2785; J2916; J3010; J3480; J3490; J7030; J7050; J7060; J7120; P9021; Q9967